=== PATIENT | female | born 1975 | race Caucasian/White ===

== ENCOUNTER 2017-06-03 08:14 | Outpatient (CLI) | payer OTHER ==
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
== END 2017-06-03 08:15 | disposition home or self-care (01) ==
LOC: DI 08:14
PROVIDERS: ATTEND Orthopaedic Surgery
DX: M94.271 Chondromalacia, right ankle and joints of right foot (principal)

== ENCOUNTER 2017-12-13 09:04 | Outpatient (CLI) | payer OTHER ==
[~2017-12-13 09:04] MED LIST: GADOPENTETATE DIMEGLUMINE 5 ML VIAL IVP ONE; IOTHALAMATE MEGLUMINE 50 ML VIAL ONE
[2017-12-13] MEDS ORDERED: IOTHALAMATE MEGLUMINE 50 ML VIAL IVP ONE (09:58)
[2017-12-13] MEDS ORDERED: GADOPENTETATE DIMEGLUMINE 5 ML VIAL IVP ONE (09:58)
[2017-12-13] MEDS ORDERED: BUFFERED LIDOCAINE 10 ML SYRINGE IU ONE (09:58)
--- NOTE | 2017-12-13 11:15 | XRAY Report ---
FLUOROSCOPICALLY-GUIDED RIGHT SHOULDER INJECTION FOR MR ARTHROGRAM: 12/13/2017 CLINICAL INDICATION: Pain. TECHNIQUE/FINDINGS: Following obtaining informed consent, the patient's right shoulder was prepped and draped in the usual sterile fashion. The skin and soft tissues were anesthetized with lidocaine. A spinal needle was inserted into the glenohumeral joint, and a combination of iodinated contrast, dilute gadolinium, and lidocaine was injected intraarticularly. The patient tolerated the procedure well. No immediate complications. Spot image reveals no evidence of contrast extravasation. IMPRESSION: SUCCESSFUL RIGHT SHOULDER INJECTION FOR MR ARTHROGRAM. FLUOROSCOPY TIME: 32 seconds; one spot image obtained. TD: 12/13/2017 11:07
--- NOTE | 2017-12-13 16:51 | MRI Report ---
EXAM: RIGHT SHOULDER MRI ARTHROGRAM WITH CONTRAST. EXAM DATE: 12/13/2017 10:24 AM. CLINICAL HISTORY: Right shoulder pain. COMPARISON: None. TECHNIQUE: Multiplanar, multisequence T1-weighted and fluid-sensitive sequences of the shoulder after an arthrographic injection of dilute gadolinium, dictated under a separate exam. Other: None. FINDINGS: Acromioclavicular Region: The acromion is type I. Mild acromioclavicular joint osteoarthritis. The co racoacromial and coracoclavicular ligaments are intact. There is no contrast or fluid in the subacrom ial/subdeltoid bursa. Glenohumeral Region: No subluxation. No loose bodies. The articular cartilage is unremarkable. The gl enohumeral ligaments and joint capsule are unremarkable. Bone Marrow: No fracture, marrow edema or bone lesions. Labrum: There is slight T1 and T2 hyperintense signal within the superior aspect of the labrum sugges tive of intrasubstance degeneration or a chronic SLAP tear. The remainder of the labrum is unremarkab le. Biceps Tendon: The long head of the biceps tendon and biceps suki are intact. Musculature/Rotator Cuff: There is supraspinatus tendinosis. Infraspinatus, teres minor, and subscapu ken tendons are unremarkable. No rotator cuff tear. No edema or fatty atrophy. Other: The subcutaneous tissues are unremarkable. IMPRESSION: 1. Slight T1 and T2 hyperintense signal within the superior aspect of the labrum suggestive of intras ubstance degeneration or a chronic SLAP tear. 2. Supraspinatus tendinosis. No rotator cuff tear. 3. Mild acromioclavicular joint osteoarthritis. [facility] SECTION Referring Provider Line: [phone] SITE ID: [id number]
== END 2017-12-13 09:05 | disposition home or self-care (01) ==
LOC: DI 09:04
PROVIDERS: ATTEND Student in an Organized Health Care Education/Training Program
DX: M25.511 Pain in right shoulder (principal); M75.81 Other shoulder lesions, right shoulder; M19.011 Primary osteoarthritis, right shoulder
CPT/HCPCS: 23350; 73222; 77002; Q9961

== ENCOUNTER 2017-12-31 15:53 | Emergency (ER) | payer OTHER ==
[2017-12-31 16:04] VITALS: BP 137/88
--- NOTE | 2017-12-31 17:39 | ED Physician Documentation ---
PD HPI HEAD INJURY - Stated complaint Stated Complaint: GLF - Chief complaint Chief Complaint: Laceration - History obtained from History obtained from: Patient - History of Present Illness Mechanism of head injury: Fell (tripped and fell and struck left upper mouth area, with lac from tooth through upper lip and small chip of left upper tooth.) Timing - onset: Today Location of injury: Front (left upper lip) Associated symptoms: No: LOC, AMS Symptoms worsen with: Palpation, Movement Similar symptoms before: Has not had sx before Recently seen: Not recently seen Review of Systems Skin: reports: Laceration (s) Neurologic: denies: Focal weakness, Numbness, Near syncope PD PAST MEDICAL HISTORY - Past Medical History Cardiovascular: None Respiratory: None Neuro: None Endocrine/Autoimmune: None - Present Medications Home Medications: Ambulatory Orders Medication Instructions Recorded Confirmed Baclofen 10 mg ORAL DAILY 12/31/17 12/31/17 Cephalexin [Keflex] 500 mg PO TID #15 capsule 12/31/17 DULoxetine [Cymbalta] 30 mg PO DAILY 12/31/17 12/31/17 SUMAtriptan [Imitrex] 25 mg PO ONCE 12/31/17 12/31/17 - Allergies Allergies/Adverse Reactions: Allergies Allergy/AdvReac Type Severity Reaction Status Date / Time tramadol Allergy Hives Verified 12/31/17 16:04 - Social History Does the pt smoke?: No Smoking Status: Never smoker PD ED PE NORMAL - Vitals Vital signs reviewed: Yes - General General: Alert and oriented X 3, No acute distress, Well developed/nourished - HEENT HEENT: Atraumatic, Dentition benign (mostly fine, with small enamel chip left upper front tooth. Not loose. Inner lip with small lac not needing closure. ), Other (there is small 1 cm lac with edges together left upper outer lip, not near johana border. No FB noted. ) - Neck Neck: Supple, no meningeal sign, No bony TTP, No adenopathy Results - Vitals Vitals: Oxygen O2 Source Room air PD MEDICAL DECISION MAKING - ED course Complexity details: considered differential (mild tooth injury, just enamel. Through lip lac but does not need suturing. Steri strips applied. ), d/w patient - Sepsis Event Vital Signs: Oxygen O2 Source Room air Departure - Departure Disposition: 01 Home, Self Care Clinical Impression: Accidental fall Qualifiers: Encounter type: initial encounter Qualified Code(s): W19.XXXA - Unspecified fall, initial encounter Lip laceration Qualifiers: Encounter type: initial encounter Qualified Code(s): S01.511A - Laceration without foreign body of lip, initial encounter Condition: Stable Record reviewed to determine appropriate education?: Yes Instructions: ED Laceration Mouth Follow-Up: BELLE RICARDO MD [Primary Care Provider] - Prescriptions: Cephalexin [Keflex] 500 mg PO TID #15 capsule Comments: Let the Steri-Strips fall off on their own over several days. The wound does not need sutures. A laceration from the tooth like that is a worry for infection so take Keflex 3 times a day for the next 5 days. Tylenol or ibuprofen if needed for pain. Follow-up with your dentist regarding the tooth is chipped. Discharge Date/Time: 12/31/17 18:08
[2017-12-31] MEDS ORDERED: cephALEXin 250 MG CAPSULE PO STA (18:01)
== END 2017-12-31 18:08 | disposition home or self-care (01) ==
LOC: ED 15:53
DX: S01.511A Laceration without foreign body of lip, initial encounter (principal); W01.0XXA Fall on same level from slipping, tripping and stumbling without subsequent striking against object, initial encounter; K08.89 Other specified disorders of teeth and supporting structures
CPT/HCPCS: 99283; A9270

== ENCOUNTER 2018-11-27 12:10 | Outpatient (CLI) | payer OTHER ==
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
== END 2018-11-27 12:11 | disposition home or self-care (01) ==
LOC: DI 12:10
PROVIDERS: ATTEND Orthopaedic Surgery
DX: M19.072 Primary osteoarthritis, left ankle and foot (principal); M25.475 Effusion, left foot; M20.62 Acquired deformities of toe(s), unspecified, left foot

== ENCOUNTER 2019-01-12 13:51 | Emergency (ER) | payer OTHER ==
[2019-01-12] MEDS ORDERED: SODIUM CHLORIDE 0.9% 1,000 ML IV STA (14:06)
[2019-01-12] MEDS ORDERED: ONDANSETRON 4 MG/2 ML VIAL IVP STA ×2 (14:06→15:19)
[2019-01-12] MEDS ORDERED: KETOROLAC 30 MG/ML VIAL IVP STA (14:07)
--- NOTE | 2019-01-12 14:13 | ED Physician Documentation ---
History of Present Illness - Stated complaint Stated Complaint: R ABD PX - Chief complaint Chief Complaint: Abd Pain - History obtained from History obtained from: Patient - History of Present Illness Timing: How many days ago (2) Pain level max: 8 Pain level now: 8 - Additonal information Additional information: 43-year-old female presents to the emergency department with left-sided abdominal pain for the past few days. She states she has a known 7 and 8 mm kidney stone on that side. States she is scheduled to see urology on Monday. No fevers. Has had some nausea, no vomiting. No diarrhea. States that the pain feels different than her kidney stones. No changes to her medications. Worse with movement. Better with rest. Review of Systems Ten Systems: 10 systems reviewed and negative Constitutional: denies: Fever, Chills Nose: denies: Rhinorrhea / runny nose, Congestion Cardiac: denies: Chest pain / pressure Respiratory: denies: Cough GI: denies: Vomiting, Diarrhea Skin: denies: Rash Musculoskeletal: denies: Neck pain, Back pain Neurologic: denies: Headache PD PAST MEDICAL HISTORY - Past Medical History Past Medical History: Yes Cardiovascular: None Respiratory: None Neuro: Migraines Endocrine/Autoimmune: None GI: Other Other Past Medical History: IBS, gastroparesis - Past Surgical History Past Surgical History: Yes General: Cholecystectomy /[employer]: Breast implants - Present Medications Home Medications: Ambulatory Orders Medication Instructions Recorded Confirmed Baclofen 10 mg ORAL DAILY 12/31/17 12/31/17 Cephalexin [Keflex] 500 mg PO TID #15 capsule 12/31/17 DULoxetine [Cymbalta] 30 mg PO DAILY 12/31/17 12/31/17 SUMAtriptan [Imitrex] 25 mg PO ONCE 12/31/17 12/31/17 - Allergies Allergies/Adverse Reactions: Allergies Allergy/AdvReac Type Severity Reaction Status Date / Time tramadol Allergy Hives Verified 01/12/19 14:01 - Social History Does the pt smoke?: No Smoking Status: Never smoker Does the pt drink ETOH?: Yes Does the pt have substance abuse?: No - Immunizations Immunizations are current?: Yes PD ED PE NORMAL - Vitals Vital signs reviewed: Yes - General General: Alert and oriented X 3, No acute distress, Well developed/nourished - HEENT HEENT: Moist mucous membranes - Neck Neck: Supple, no meningeal sign - Cardiac Cardiac: RRR, Strong equal pulses - Respiratory Respiratory: No respiratory distress, Clear bilaterally - Abdomen Abdomen: Soft, Non distended, Other (Tender palpation left upper quadrant and left lower quadrant. No peritoneal signs.) - Back Back: No CVA TTP, No spinal TTP - Derm Derm: Warm and dry - Extremities Extremities: No edema - Neuro Neuro: Alert and oriented X 3 - Psych Psych: Normal mood, Normal affect Results - Vitals Vitals: Vital Signs - 24 hr 01/12/19 01/12/19 01/12/19 13:55 14:55 15:35 Temperature 37.0 C 36.9 C Heart Rate 86 78 86 Respiratory 18 17 15 Rate Blood Pressure 143/97 H 141/91 H 124/73 O2 Saturation 99 98 98 Oxygen O2 Source Room air - Labs Labs: Laboratory Tests 01/12/19 01/12/19 01/12/19 14:00 14:00 15:40 WBC 13.8 H RBC 4.70 Hgb 14.3 Hct 44.1 MCV 93.8 MCH 30.4 MCHC 32.4 RDW 13.6 Plt Count 319 MPV 9.9 Neut # (Auto) 11.9 H Lymph # (Auto) 1.4 L [place] # (Auto) 0.3 Eos # (Auto) 0.0 Baso # (Auto) 0.1 Absolute Nucleated RBC 0.00 Nucleated RBC % 0.0 Sodium 138 Potassium 3.4 L Chloride 106 Carbon Dioxide 17 L Anion Gap 15.0 H BUN 12 Creatinine 0.8 Estimated GFR (MDRD) 79 L Glucose 137 H Lactic Acid Calcium 8.4 L Total Bilirubin 0.5 AST 26 ALT 17 Alkaline Phosphatase 77 Total Protein 7.8 Albumin 4.4 Globulin 3.4 Albumin/Globulin Ratio 1.3 Lipase 20 L Urine Color YELLOW Urine Clarity CLEAR Urine pH 6.5 Ur Specific [place] 1.010 Urine Protein NEGATIVE Urine Glucose (UA) NEGATIVE Urine Ketones 15 H Urine Occult Blood LARGE H Urine Nitrite NEGATIVE Urine Bilirubin NEGATIVE Urine Urobilinogen 0.2 (NORMAL) Ur Leukocyte Esterase NEGATIVE Urine RBC 11-25 H Urine WBC 0-3 Ur Squamous Epith Cells NONE SEEN Urine Bacteria None Seen Ur Microscopic Review INDICATED Urine Culture Comments NOT INDICATED Urine HCG, Qual NEGATIVE 01/12/19 15:55 WBC RBC Hgb Hct MCV MCH MCHC RDW Plt Count MPV Neut # (Auto) Lymph # (Auto) [place] # (Auto) Eos # (Auto) Baso # (Auto) Absolute Nucleated RBC Nucleated RBC % Sodium Potassium Chloride Carbon Dioxide Anion Gap BUN Creatinine Estimated GFR (MDRD) Glucose Lactic Acid 3.1 H* Calcium Total Bilirubin AST ALT Alkaline Phosphatase Total Protein Albumin Globulin Albumin/Globulin Ratio Lipase Urine Color Urine Clarity Urine pH Ur Specific [place] Urine Protein Urine Glucose (UA) Urine Ketones Urine Occult Blood Urine Nitrite Urine Bilirubin Urine Urobilinogen Ur Leukocyte Esterase Urine RBC Urine WBC Ur Squamous Epith Cells Urine Bacteria Ur Microscopic Review Urine Culture Comments Urine HCG, Qual - Rads (name of study) CT abd/pelvis Radiology: Prelim report reviewed, EMP read contemporaneously, See rad report (. Two adjacent obstructing stones in the left ureter causing left hydronephrosis. There is moderate perinephric stranding as well as decreased enhancement of the left kidney. 2. Additional nonobstructing stones in the left kidney. 3. Scattered colonic diverticula without CT evidence of acute diverticulitis. ) PD MEDICAL DECISION MAKING - ED course Complexity details: reviewed results, re-evaluated patient, considered differential, d/w patient, d/w senior internet sales consultant ED course: 43-year-old female presents to the emergency department with 2 left-sided ureteral stones that are obstructing. She has leukocytosis and an elevated lactate. Given IV fluids and Rocephin. Urinalysis appears clean at this time, but given the other findings, concern for infection. I contacted Dr. Benton with urology at 1640 who recommends transfer to [facility] for stent placement. Recommends transfer to the hospitalist service. At [address] Mooney, hospitalist who graciously accepts in transfer. COBRA forms completed. Patient transferred. This document was made in part using voice recognition software. While efforts are made to proofread this document, sound alike and grammatical errors may occur. Departure - Departure Disposition: 02 Transfer Acute Care Hosp Clinical Impression: Ureteral calculus, left, Pyelonephritis Condition: Stable
[2019-01-12 14:20] LABS: BASOPHILS # (AUTO) 0.1 10^3/uL (0.0-0.1); BASOPHILS % (AUTO) 0.4 %; HGB - HEMOGLOBIN 14.3 g/dL (12.0-16.0); LYMPHOCYTES # (AUTO) 1.4 10^3/uL (1.5-3.5); LYMPHOCYTES % (AUTO) 10.3 %; MEAN CORPUSCULAR HEMOGLOBIN 30.4 pg (27.0-31.0); MEAN CORPUSCULAR HGB CONC 32.4 g/dL (32.0-36.0); MEAN CORPUSCULAR VOLUME 93.8 fL (81.0-99.0); MEAN PLATELET VOLUME 9.9 fL (7.9-10.8); MONOCYTES # (AUTO) 0.3 10^3/uL (0.0-1.0); MONOCYTES % (AUTO) 2.3 %; NEUTROPHILS # (AUTO) 11.9 10^3/uL (1.5-6.6); NEUTROPHILS % (AUTO) 86.3 %; PLT - PLATELET COUNT 319 10^3/uL (130-450); RED CELL DISTRIBUTION WIDTH 13.6 % (12.0-15.0); WHITE BLOOD COUNT 13.8 x10^3/uL (4.8-10.8)
[2019-01-12 14:34] LABS: ALBUMIN 4.4 g/dL (3.2-5.5); ALBUMIN/GLOBULIN RATIO 1.3 (1.0-2.2); BILIRUBIN,TOTAL 0.5 mg/dL (0.2-1.0); CALCIUM 8.4 mg/dL (8.5-10.3); CREATININE 0.8 mg/dL (0.4-1.0); TOTAL PROTEIN 7.8 g/dL (6.7-8.2)
[2019-01-12] MEDS ORDERED: HYDROmorphone 1 MG/ML CARPUJECT IVP STA ×3 (15:03→19:01)
[2019-01-12] MEDS ORDERED: IOVERSOL 320 100 ML VIAL IVP ONE ×2 (15:07→15:22)
--- NOTE | 2019-01-12 15:44 | CT Report ---
Reason: L sided abd pain Procedure Date: 01/12/2019 Accession Number: [id number] / [id number] Procedure: CT - Abdomen/Pelvis W CPT Code: FULL RESULT: EXAM: CT ABDOMEN AND PELVIS EXAM DATE: 01/12/2019 03:21 PM. CLINICAL HISTORY: L sided abd pain. COMPARISONS: None. TECHNIQUE: Routine helical CT imaging was performed through the abdomen and pelvis. IV contrast: 90 mL Optiray 320. Enteric contrast: No. Reconstructions: Coronal and sagittal. In accordance with CT protocol optimization, one or more of the following dose reduction techniques were utilized for this exam: automated exposure control, adjustment of mA and/or KV based on patient size, or use of iterative reconstructive technique. FINDINGS: Lung Bases: Unremarkable. Breast implants. Liver: Normal. No masses. Gallbladder/Bile Ducts: Status post cholecystectomy. Spleen: Normal. Pancreas: Normal. Adrenal Glands: Normal. Kidneys: There are 2 adjacent obstructing stones in the left ureter. The more superior of the stones is just past the ureteropelvic junction and measures 10 x 5 mm; the more inferior of the 2 stones measures 8 x 4 mm. These cause left hydronephrosis. There are additional nonobstructing stones in the upper pole measuring 6 mm and in the lower pole measuring 2 mm. There is moderate perinephric stranding around the left kidney as well as decreased enhancement of the parenchyma. The right kidney is unremarkable in appearance. Peritoneal Cavity/Bowel: Scattered colonic diverticula without CT evidence of acute diverticulitis. No free fluid, free air or adenopathy. No masses or acute inflammatory process. The appendix is well visualized and normal. Pelvic Organs: Normal. The bladder and visualized pelvic organs are within normal limits. Vasculature: No aneurysms or other significant abnormality. Bones: No significant abnormality. Other: None. IMPRESSION: 1. Two adjacent obstructing stones in the left ureter causing left hydronephrosis. There is moderate perinephric stranding as well as decreased enhancement of the left kidney. 2. Additional nonobstructing stones in the left kidney. 3. Scattered colonic diverticula without CT evidence of acute diverticulitis. [facility]
[2019-01-12 15:46] LABS: BILIRUBIN,URINE NEGATIVE (NEGATIVE); GLUCOSE, URINE (UA) NEGATIVE (NEGATIVE); KETONES,URINE (UA) 15 mg/dL (NEGATIVE); LEUKOCYTE ESTERASE, URINE NEGATIVE (NEGATIVE); NITRITE,URINE NEGATIVE (NEGATIVE); OCCULT BLOOD,URINE LARGE (NEGATIVE); PH,URINE 6.5 PH (5.0-7.5); PROTEIN,URINE NEGATIVE (NEGATIVE); UROBILINOGEN,URINE 0.2 (NORMAL) E.U./dL (NORMAL)
[2019-01-12] MEDS ORDERED: SODIUM CHLORIDE 0.9% 1,000 ML IV ONE ×2 (15:50→16:41)
[2019-01-12 15:51] LABS: CLARITY,URINE CLEAR (CLEAR); HCG UR QUAL NEGATIVE
[2019-01-12 15:55] LABS: BACTERIA,URINE None Seen /HPF (None Seen); SQUAMOUS EPITHELIAL CELL,UR NONE SEEN (<= Few)
[2019-01-12] MEDS ORDERED: oxyCODONE 5 MG TABLET PO STA (16:32)
[2019-01-12] MEDS ORDERED: cefTRIAXone 1 GM VIAL IVP STA (16:32)
[2019-01-12 18:15] VITALS: BP 119/77
[2019-01-12] MEDS ORDERED: HYDROmorphone 1 MG/ML CARPUJECT ONE (19:11)
== END 2019-01-12 19:11 | disposition short-term general hospital (02) ==
LOC: ED 13:51
DX: N13.2 Hydronephrosis with renal and ureteral calculous obstruction (principal); N12 Tubulo-interstitial nephritis, not specified as acute or chronic; K57.30 Diverticulosis of large intestine without perforation or abscess without bleeding
CPT/HCPCS: 36415; 74177; 80053; 81001; 81025; 83605; 83690; 85025; 96361; 96374; 96375; 96376; 99284; 99285; A9270; J1170; Q9967; 81003; 87086

== ENCOUNTER 2019-06-26 13:36 | Outpatient (CLI) | payer OTHER ==
--- NOTE | 2019-06-27 14:12 | MRI Report ---
Reason: LOW BACK PAIN Procedure Date: 06/26/2019 Accession Number: [id number] / [id number] Procedure: MRI - Lumbar Spine W/O CPT Code: Final Report FULL RESULT: EXAM: MRI LUMBAR SPINE WITHOUT CONTRAST EXAM DATE: 06/26/2019 02:56 PM. CLINICAL HISTORY: LOW BACK PAIN. COMPARISON: None. TECHNIQUE: Multiplanar, multisequence T1-weighted and fluid-sensitive sequences of the lumbar spine from T12 to S1 without contrast. Other: None. FINDINGS: Lumbar alignment is anatomic. There is minimal anterior wedging of the L1 vertebral body which is probably sequela of old trauma given slight concavity of the ventral cortex. Normal physiologic wedging is less likely. This is chronic. A small Schmorl's node is also present along the anterior margin of the superior endplate of L1. No acute fracture is present anywhere in the lumbar spine. Vertebral morphology elsewhere is normal. The conus is normal in contour with the tip at the level of the L1-L2 disk. There is slight prominence of the central canal of the lower spinal cord with maximal canal diameter approximately 1.5 mm. This is of doubtful significance. Axial images demonstrate the following: T12-L1: Normal intervertebral disk and facet joints. No central or foraminal stenosis. L1-L2: Normal intervertebral disk and facet joints. No central or foraminal stenosis. L2-L3: Normal intervertebral disk and facet joints. No central or foraminal stenosis. L3-L4: Normal intervertebral disk and facet joints. No central or foraminal stenosis. L4-L5: Normal intervertebral disk and facet joints. No central or foraminal stenosis. L5-S1: Normal intervertebral disk and facet joints. No central or foraminal stenosis. IMPRESSION: 1. Minimal anterior wedging of the L1 vertebral body, probably sequela of old low-grade compression fracture. Normal physiologic wedging is less likely. There is also a small Schmorl's node along the superior endplate of L1. 2. Vertebral morphology elsewhere is normal. There is no acute fracture. 3. Slight prominence of the central canal of the distal spinal cord, of doubtful significance. 4. The remainder of the lumbar spine is normal. The lumbar intervertebral disks and facet joints are normal. No central or foraminal stenosis at any lumbar level. Comment: The following findings are so common in adults without low back pain that while we report their presence, they must be interpreted with caution and in the context of the clinical situation. (Reference Kennyk et al, Spine 2001) Prevalence of findings in patients without low back pain: Disk degeneration (any evidence): 92% Disk desiccation/T2 signal loss: 83% Disk height loss: 56% Disk bulge: 64% Disk protrusion: 32% Annular tear/high intensity zone: 38% [facility]
== END 2019-06-26 13:37 | disposition home or self-care (01) ==
LOC: DI 13:36
PROVIDERS: ATTEND Student in an Organized Health Care Education/Training Program
DX: M48.56XA Collapsed vertebra, not elsewhere classified, lumbar region, initial encounter for fracture (principal); M51.46 Schmorl's nodes, lumbar region
CPT/HCPCS: 72148